=== PATIENT | female | born 1995 | race Two or more races ===

== ENCOUNTER 2020-03-12 14:25 | Emergency (ER) | payer BC, OTHER ==
[~2020-03-12] VITALS: Ht 160 cm; Wt 99.8 kg
[2020-03-12] MEDS ORDERED: ACETAMINOPHEN 325 MG TAB PO ONE (17:30)
[2020-03-12] MEDS ORDERED: DOXYCYCLINE 100 MG TAB/CAP PO ONE (17:30)
[2020-03-12] MEDS ORDERED: cefTRIAXone SOD 1,000 MG VL IM ONE (17:30)
[2020-03-12 18:00] VITALS: BP 142/69
== END 2020-03-12 18:10 | disposition home or self-care (01) ==
LOC: ER 14:25
DX: U07.1 COVID-19 (principal)
CPT/HCPCS: 36415; 71045; 87426; 96372; 99284; J0696